=== PATIENT | female | born 2000 | race Asian ===

== ENCOUNTER 2023-05-11 20:36 | Emergency (ER) | payer BC ==
[~2023-05-11] VITALS: Ht 170.2 cm; Wt 65.8 kg
[2023-05-11 20:56] VITALS: BP_SYST 131; PULSE 103; RESP 20; TEMP 98.9; O2SAT 98
[2023-05-11] MEDS ORDERED: KETOROLAC TROMETHAMINE 60 MG/2 ML VIAL IM ONE (21:15)
[2023-05-11] MEDS ORDERED: HYDR-3927 PO (21:30)
[2023-05-11] MEDS ORDERED: IBUP-1969 PO (21:30)
[2023-05-11 21:51] LABS: BILIRUBIN,URINE NEGATIVE (NEGATIVE); BLOOD, URINE NEGATIVE (NEGATIVE); COLOR,URINE YELLOW (YELLOW); GLUCOSE,URINE NEGATIVE (NEGATIVE); KETONES,URINE TRACE (NEGATIVE); LEUKOCYTE ESTERASE ,URINE NEGATIVE (NEGATIVE); NITRITE, URINE NEGATIVE (NEGATIVE); PH,URINE 5.5 (5.0-8.0); PROTEIN URINE NEGATIVE (NEGATIVE); UROBILINOGEN,URINE 0.2 (0.2-1.0)
[2023-05-11 21:53] LABS: CLARITY/URINE SLIGHTLY HAZY (CLEAR)
[2023-05-11 22:02] LABS: BACTERIA,URINE MODERATE /HPF (None Seen); MUCUS,URINE 1+ /LPF (None Seen); RBC,URINE NONE SEEN /HPF (0-3)
[2023-05-11 22:03] VITALS: BP_SYST 128; PULSE 82; RESP 16; TEMP 98.5; O2SAT 98
== END 2023-05-11 22:03 | disposition home or self-care (01) ==
LOC: SED 20:36
DX: R07.89 Other chest pain (principal); R10.2 Pelvic and perineal pain; M54.50 Low back pain, unspecified; Z79.899 Other long term (current) drug therapy
CPT/HCPCS: 99284; 81000; 87086; 93005; 96372; J1885